=== PATIENT | male | born 1975 | race African-American/Black ===

== ENCOUNTER → 2019-10-01 | Emergency (ER) | payer MEDICAID ==
[~2019-10-01] VITALS: Ht 185.4 cm; Wt 99.8 kg
[2019-10-01 13:56] VITALS: BP 167/105
--- NOTE | 2019-10-01 13:56 | NUR ---
ED Nurse Note: pt. unable to assess. pt. was registered but [employer] officers decided to transfer pt. to [facility] instead. Dr. Thornton aware. CN aware. Unable to do full assessment to the pt.
--- NOTE | 2019-10-01 14:05 | Emergency Room Report ---
History of Present Illness General Chief Complaint: Behavioral Complaint Source: Patient, EMS, Law Enforcement Present Illness HPI 44-year-old male history of possible schizophrenia takes Depakote and Abilify presents with passive suicidality patient initially not suicidal to me however told EMS that he has a plan to walk in traffic or at least the voices are telling him to he states he has been without his medications, states he wants to just go to a mental health facility and be rehabilitated, aggravated by not taking his medications alleviated by taking his medication severity is mild, intermittent patient has been without his medications for 2 weeks. Additionally this interview was conducted with law enforcement next to me as well as EMS. Allergies: Coded Allergies: RISPERIDONE (Verified Allergy, Unknown, 10/01/19) COVID-19 Screening Contact w/high risk pt: No Recent Travel to affected area: No Experienced COVID-19 symptoms?: No Patient History Past Medical History: see triage record Reviewed Nursing Documentation: PMH: Agreed; PSxH: Agreed Nursing Documentation-PMH Past Medical History: No History, Except For Hx Hypertension: Yes Hx Diabetes: Yes History Of Psychiatric Problem: Yes - bipolar, schizophrenia Review of Systems All Other Systems: negative except mentioned in HPI Physical Exam Vital Signs Date Time Temp Pulse Resp B/P (MAP) Pulse Ox O2 Delivery O2 Flow Rate FiO2 10/01/19 13:47 99.0 99 18 167/105 (125) 98 Room Air General Appearance: well appearing, no apparent distress Head: normocephalic, atraumatic ENT: hearing grossly normal, normal voice Neck: full range of motion, supple Respiratory: no respiratory distress, speaking full sentences Neurologic: alert, normal gait Psychiatric: other - Passive suicidality Skin: no rash Medical Decision Making Diagnostic Impression: Primary Impression: Behavioral disorder ER Course 44-year-old male was being interviewed outside waiting for a bed to open up, patient opted to then go with law enforcement to [facility] Patient has no acute emergencies at this time Patient then went with law enforcement Last Vital Signs Date Time Temp Pulse Resp B/P (MAP) Pulse Ox O2 Delivery O2 Flow Rate FiO2 10/01/19 13:47 99.0 99 18 167/105 (125) 98 Room Air Disposition: LAW ENFORCEMENT IN CUST Condition: Stable Referrals: [facility] Patient Instructions: Self-Destructive Behavior Additional Instructions: The patient was provided with discharge instructions, notified to follow-up with a primary care doctor and or specialist in the next 24-48 hours, and to return to the ED if they have worsening of their symptoms. Please note that this report is being documented using Aiming technology. This can lead to erroneous entry secondary to incorrect interpretation by the dictating instrument. Juaquin Kamara MD Oct 01, 2019 14:04
== END ==
LOC: EDBD 13:56 → EMR 14:02
DX: R46.89 Other symptoms and signs involving appearance and behavior (principal); Z88.8 Allergy status to other drugs, medicaments and biological substances; E11.9 Type 2 diabetes mellitus without complications; I10 Essential (primary) hypertension; F31.9 Bipolar disorder, unspecified; F20.9 Schizophrenia, unspecified; R45.850 Homicidal ideations